=== PATIENT | female | born 1980 | race Caucasian/White ===

== ENCOUNTER → 2017-02-20 | Outpatient (CLI) | payer OTHER ==
[~2017-02-20] MED LIST: BENZ56AE TP; CODE-54 PO; DBC1O30 TOP; DCS100C PO; FAMO20TA5 PO; FRS325T PO; IBP600T1 PO; PREN1TAB71 PO
--- NOTE | 2017-02-20 10:42 | Diagnostic Imaging Report ---
3 views of the right knee. Indication right knee pain. Findings: No fracture, dislocation or radiopaque foreign body seen. There is small to moderate suprapatellar effusion suggested. Minimal osteophytes formation in the medial compartment seen. No significant joint space narrowing or other arthritic changes seen however. Impression: Minimal degenerative change. Small to moderate effusion. Dictated by: Dictated on workstation # [id number]
== END ==
LOC: RAD 10:22
PROVIDERS: ATTEND Nurse Practitioner Family
DX: M25.561 Pain in right knee (principal); M25.461 Effusion, right knee
CPT/HCPCS: 73562

== ENCOUNTER → 2019-01-11 | Outpatient (CLI) | payer OTHER ==
--- NOTE | 2019-01-11 14:25 | Diagnostic Imaging Report ---
INDICATION: anatomical assessment during normal . TECHNIQUE: Multiple real-time grayscale images were obtained over the gravid uterus. COMPARISON: None. FINDINGS: There is presence of a single viable intrauterine , currently in cephalic presentation. Normal amount of amniotic fluid. Placenta is anterior and without evidence for previa. Visualized anatomical structures including kidneys, bladder, stomach, intracranial structures, four-chamber heart, three-vessel cord, spine, and cord insertion site are unremarkable. Maternal adnexa is not visualized. Biometrical measurements are as follows: Biparietal 4.80 cm, age 20 weeks 4 days. Head circumference 18.40 cm, age 20 weeks 6 days. Abdominal circumference 15.60 cm, age 20 weeks 6 days. Femur length 3.74 cm, age 22 weeks 0 days. Sonographic estimate age: 21 weeks 1 days. Sonographic estimated date of delivery: 05/23/2019. Estimated Weight: 407 gm (+/- 60 gm). LMP percentile: 94%. heart rate: 140 beats per minute. number: 1 of 1. IMPRESSION: 1. Single viable intrauterine , currently in cephalic presentation. Sonographic estimated age at 21 weeks 1 day for an estimated date of delivery of May 23, 2019. No abnormalities demonstrated at this time. Dictated by: Dictated on workstation # [id number]
== END ==
LOC: RAD 11:50
PROVIDERS: ATTEND Obstetrics & Gynecology
DX: Z36.89 Encounter for other specified antenatal screening (principal); Z3A.21 21 weeks gestation of pregnancy
CPT/HCPCS: 76805

== ENCOUNTER 2019-05-23 19:03 | Inpatient (IN) | payer BC, OTHER ==
[~2019-05-23] VITALS: Ht 165.1 cm; Wt 112.0 kg
--- NOTE | 2019-05-23 19:00 | NUR ---
MÓNICA AGEE presented to unit via from ED, accompanied by s/o, with c/o INDUCTION. MÓNICA AGEE weighed, gowned, voided, and to bed. EFHM and TOCO applied, VS taken. MÓNICA AGEE oriented to bed controls, call light, TV, heat, and A/C controls.
[2019-05-23 19:15] VITALS: BP 136/69
[2019-05-23] MEDS ORDERED: MISOPROSTOL 100 MCG (CYTOTEC) TAB PO NR (19:15)
[2019-05-23] MEDS ORDERED: NS IV 500 ML 500 ML IV ONE (19:15)
[2019-05-23] MEDS ORDERED: D5 LR IV SOLUTION 1,000 ML IV ONE (19:27)
[2019-05-23] MEDS ORDERED: NS IV 500 ML 500 ML ONE (19:27)
[2019-05-23] MEDS: D5 LR IV SOLUTION 1,000 ML IV SCH (19:47)
[2019-05-23 19:58] LABS: BILIRUBIN,URINE NEGATIVE (NEGATIVE); COLOR,URINE YELLOW; GLUCOSE, URINE (UA) NEGATIVE (NEGATIVE); KETONES,URINE 1+ (NEGATIVE); LEUKOCYTE ESTERASE ,URINE 1+ (NEGATIVE); NITRITE,URINE NEGATIVE (NEGATIVE); PH,URINE 5 (5-9); PROTEIN,URINE 2+ (NEGATIVE); UROBILINOGEN,URINE NORMAL (NORMAL)
[2019-05-23 20:00] LABS: BASOPHILS % (AUTO) 0 % (0-10); EOSINOPHILS % (AUTO) 1 % (0-10); HEMATOCRIT 29 % (35-52); HEMOGLOBIN 9.3 G/DL (11.5-16.0); LYMPHOCYTES # (AUTO) 1.6 X 10^3 (1.0-4.0); LYMPHOCYTES % (AUTO) 21 % (12-44); MEAN CORPUSCULAR HEMOGLOBIN 25 PG (25-34); MEAN CORPUSCULAR HGB CONC 32 G/DL (32-36); MEAN CORPUSCULAR VOLUME 79 FL (80-99); MONOCYTES # (AUTO) 0.7 X 10^3 (0.0-1.0); MONOCYTES % (AUTO) 9 % (0-12); NEUTROPHILS # (AUTO) 5.3 X 10^3 (1.8-7.8); NEUTROPHILS % (AUTO) 69 % (42-75); PLATELET COUNT 394 10^3/uL (130-400); RED CELL DISTRIBUTION WIDTH 15.2 % (10.0-14.5); WHITE BLOOD COUNT 7.7 10^3/uL (4.3-11.0)
[2019-05-23 20:04] LABS: BACTERIA,URINE FEW /HPF; CLARITY,URINE SL CLOUDY; RBC,URINE RARE /HPF
[2019-05-23 20:25] VITALS: BP 134/67
[2019-05-23 20:55] VITALS: BP 129/73
[2019-05-23 21:25] VITALS: BP 139/61
[2019-05-23 22:50] VITALS: BP 126/78
[2019-05-23] MEDS ORDERED: MISOPROSTOL 100 MCG (CYTOTEC) TAB PO SCH (23:15)
[2019-05-23 23:50] VITALS: BP 128/64
[2019-05-24] VITALS (76 sets, daily range): BP systolic 99–150; BP diastolic 5–93
[2019-05-24] MEDS ORDERED: LIDOCAINE PF 2% 5 ML (XYLOCAINE) VIAL ONE (01:41)
[2019-05-24] MEDS ORDERED: fentaNYL INJECTION 100 MCG/2 ML AMP ONE (01:41)
[2019-05-24] MEDS ORDERED: BUPIVACAINE 0.25% 30 ML (SENSORCAINE) VIAL ONE ×2 (01:41→12:19)
[2019-05-24] MEDS ORDERED: LACTATED RINGERS 1,000 ML IV ONE ×2 (02:21)
[2019-05-24] MEDS ORDERED: NALOXONE 0.4 MG/ML 1 ML (NARCAN) VIAL IV PRN (02:30)
[2019-05-24] MEDS ORDERED: ONDANSETRON 4 MG/2 ML (SDV) Z0FRAN IV PRN (02:30)
[2019-05-24] MEDS: EPIDURAL (SUFENTA 0.6MCG/ML BUPIVA 0.125%) 100 ML BAG EPI PRN ×2 (02:30→11:05)
[2019-05-24] MEDS: D5 LR IV SOLUTION 1,000 ML IV SCH ×3 (03:02→22:01)
[2019-05-24] MEDS ORDERED: PHYTONADIONE (VIT. K) NEONATAL 1 MG/0.5 ML AMP ONE (04:28)
[2019-05-24] MEDS ORDERED: ERYTHROMYCIN OPHTH OINT 1 GM (SINGLE USE) TUBE ONE (04:28)
[2019-05-24] MEDS ORDERED: PETROLATUM JELLY(VASELINE) 49 GM JAR ONE (04:28)
[2019-05-24] MEDS ORDERED: OXYTOCIN/NORMAL SALINE 500 ML IV ONE (06:28)
[2019-05-24] MEDS ORDERED: OXYTOCIN/NORMAL SALINE 500 ML IV SCH (06:34)
--- NOTE | 2019-05-24 08:39 | History & Physical-OB ---
OB - Chief Complaint & HPI Date/Time Date of Admission: Date of Admission: May 23, 2019 at 7:03 pm Date seen by a Provider: May 24, 2019 Time Seen by a Provider: 08:00 Chief Complaint/History OB-Reason for Admission/Chief: Induction of Labor Hx : 4 Hx Para: 1 Expected Date of Delivery: May 30, 2019 Gestational Age in Weeks: 39 Gestational Age in Days: 1 Admission Nurse Assessment Rev: Yes History of Labs O pos antibody neg RI HBsAg NR HCsAg NR HIV NR RPR NR GC neg GBS neg Allergies and Home Medications Allergies Coded Allergies: No Known Drug Allergies (Unverified , 10/13/14) Home Medications Famotidine 20 Mg Tablet, 1 EACH PO BID PRN for HEARTBURN, (Reported) Patient Home Medication List Home Medication List Reviewed: Yes OB - History Hx of Present Care: Yes Ultrasounds: Normal mid trimester US Obstetrical Complications: Gestational Hypertension Medical Complications: None Obstetrical History Hx Termination: No Hx Multiple Gestation: No Hx Stillbirth: No Hx Complication: No Hx Induced Hypertens: Yes Hx Maternal Gestational Diabet: No Delivery History Hx Dystocia: No Hx Large For Gestational Age I: No Hx Small for Gestational Age I: No Hx Section: No Hx Vaginal Delivery Post C-Sec: No Hx Blood Disorders: No Adverse Rxn to Tranfusion: No Patient Past Medical History n/a Social History/Family History Recent Infectious Disease Expo: No Alcohol Use: Denies Use Recreational Drug Use: No Immunizations Hepatitis A: No Hepatitis B: No Date of Influenza Vaccine: May 29, 2014 OB - Admission Exam Physical Exam Vitals: Vital Signs 05/24/19 05/24/19 05/24/19 01:20 03:30 07:00 Temp 97.9 Pulse 61 Resp 18 B/P (MAP) 99/5 (36) Pulse Ox 95 O2 Delivery Room Air HEENT: NCAT Heart: Rhythm Normal Lungs: Clear Abdomen: Gravid Extremities: Normal Reflexes: Normal Cervical Dilatation: 3cm Effacement: 75% Station: -1 Membranes: Intact Heart Rate: 130's Accelerations: Accelerations Present Decelerations: No Decelerations Short Term Variability: Present Plywood Matcher Variability: Average (6-25) Contractions on Admission: 6-10 Minutes Apart Intensity: Mild Zambrano Scoring Tool (Modified) Dilation (cm): 3-4cm (2) Effacement (%): 51-79% (2) Descent/Station: -1,0 (2) Cervix Consistency: Soft (2) Cervix Position: Anterior (2) Add 1 point for: Each previous vaginal delivery (1) Zambrano Score: 11 Labs Laboratory Tests Test 05/23/19 19:45 Range/Units White Blood Count 7.7 4.3-11.0 10^3/uL Red Blood Count 3.68 L 4.35-5.85 10^6/uL Hemoglobin 9.3 L 11.5-16.0 G/DL Hematocrit 29 L 35-52 % Mean Corpuscular Volume 79 L 80-99 FL Mean Corpuscular Hemoglobin 25 25-34 PG Mean Corpuscular Hemoglobin Concent 32 32-36 G/DL Red Cell Distribution Width 15.2 H 10.0-14.5 % Platelet Count 394 130-400 10^3/uL Mean Platelet Volume 10.0 7.4-10.4 FL Neutrophils (%) (Auto) 69 42-75 % Lymphocytes (%) (Auto) 21 12-44 % Monocytes (%) (Auto) 9 0-12 % Eosinophils (%) (Auto) 1 0-10 % Basophils (%) (Auto) 0 0-10 % Neutrophils # (Auto) 5.3 1.8-7.8 X 10^3 Lymphocytes # (Auto) 1.6 1.0-4.0 X 10^3 Monocytes # (Auto) 0.7 0.0-1.0 X 10^3 Eosinophils # (Auto) 0.0 0.0-0.3 10^3/uL Basophils # (Auto) 0.0 0.0-0.1 10^3/uL Urine Color YELLOW Urine Clarity SL CLOUDY Urine pH 5 5-9 Urine Specific [place] 1.020 1.016-1.022 Urine Protein 2+ H NEGATIVE Urine Glucose (UA) NEGATIVE NEGATIVE Urine Ketones 1+ H NEGATIVE Urine Nitrite NEGATIVE NEGATIVE Urine Bilirubin NEGATIVE NEGATIVE Urine Urobilinogen NORMAL NORMAL MG/DL Urine Leukocyte Esterase 1+ H NEGATIVE Urine RBC (Auto) NEGATIVE NEGATIVE Urine RBC RARE /HPF Urine WBC 2-5 /HPF Urine Squamous Epithelial Cells 10-25 H /HPF Urine Crystals NONE /LPF Urine Bacteria FEW H /HPF Urine Casts NONE /LPF Urine Mucus MODERATE H /LPF Urine Culture Indicated YES OB - Assessment/Plan/Diagnosis Assessment Assessment: induction of labor Admission Dx 38 yo @ 39 weeks GHTN GBS neg AMA Admission Status: Inpatient Order (span 2 midnights) Reason for Inpatient Admission: Induction of labor at term Plan Induction Method: per Misoprostol Protocol RISHI SINGLETON DO May 24, 2019 8:39 am
[2019-05-24] MEDS ORDERED: LIDOCAINE/EPI 2% 1:200,00 (XYLOCAINE) 10 ML VIAL ONE (13:50)
[2019-05-24] MEDS ORDERED: WITCH HAZEL(TUCKS) 40 EA JAR TOP PRN (14:45)
[2019-05-24] MEDS ORDERED: DIBUCAINE (NUPERCAINAL) 1% OINT 30 GM TOP PRN (14:45)
[2019-05-24] MEDS ORDERED: MEASLES,MUMPS,RUBELLA 1 EA INJ SQ ONE (14:45)
[2019-05-24] MEDS ORDERED: HYDROcodone/APAP 5 MG/325 MG (LORTAB) TAB PO PRN (14:45)
[2019-05-24] MEDS ORDERED: BENZOCAINE/MENTHOL (DERMOPLAST) 56 ML CAN TP PRN (14:45)
[2019-05-24] MEDS ORDERED: TETANUS,DIPTH,PERTUSS P/F (BOOSTRIX) 0.5 ML VIAL IM ONE (14:45)
--- NOTE | 2019-05-24 14:46 | OB Labor & Delivery Record ---
L&D History Date of Service Date of Service: May 24, 2019 History Expected Date of Delivery: May 30, 2019 Gestational Age in Weeks: 39 Hx : 4 Hx Para: 1 Complications Events: Routine care Operative Indications (Cesarea: N/A-Vaginal Delivery Intrapartal Events: None L&D Stage1 Stage One Onset of Labor - Date: May 24, 2019 Monitors and Tracing Monitor Mode: External Heart Rate: 130 Station: -1 Snf Variability: Average (6-10) Short Term Variability: Present Presentation: Vertex Vital Signs VS - Last 72 Hours, by Label 05/23/19 05/23/19 05/23/19 05/23/19 19:15 20:25 20:55 21:25 Temp 97.0 Pulse 80 71 72 75 Resp 18 18 18 18 B/P (MAP) 136/69 (91) 134/67 (89) 129/73 (91) 139/61 (87) O2 Delivery Room Air Room Air Room Air Room Air 05/23/19 05/23/19 05/24/19 05/24/19 22:50 23:50 00:20 00:50 Temp 97.2 Pulse 70 71 65 63 Resp 18 18 18 18 B/P (MAP) 126/78 (94) 128/64 (85) 129/74 (92) 128/69 (88) O2 Delivery Room Air Room Air Room Air Room Air 05/24/19 05/24/19 05/24/19 05/24/19 01:20 01:55 02:00 02:05 Temp 97.9 Pulse 65 75 66 73 Resp 18 18 18 18 B/P (MAP) 145/70 (95) 139/62 (87) 132/61 (84) 132/64 (86) O2 Delivery Room Air Room Air Room Air Room Air 05/24/19 05/24/19 05/24/19 05/24/19 02:10 02:15 02:20 02:30 Pulse 73 78 75 67 Resp 18 18 18 18 B/P (MAP) 134/67 (89) 135/63 (87) 126/79 (95) 121/64 (83) Pulse Ox 98 98 98 O2 Delivery Room Air Room Air Room Air Room Air 05/24/19 05/24/19 05/24/19 05/24/19 02:40 02:45 02:50 02:55 Pulse 68 69 68 67 Resp 18 18 18 18 B/P (MAP) 129/62 (84) 125/59 (81) 128/61 (83) 126/60 (82) Pulse Ox 96 97 97 97 O2 Delivery Room Air Room Air Room Air Room Air 05/24/19 05/24/19 05/24/19 05/24/19 03:00 03:05 03:10 03:15 Pulse 67 69 67 65 Resp 18 18 18 18 B/P (MAP) 123/62 (82) 128/61 (83) 120/61 (80) 124/59 (80) Pulse Ox 97 97 97 95 O2 Delivery Room Air Room Air Room Air Room Air 05/24/19 05/24/19 05/24/19 05/24/19 03:20 03:25 03:30 03:45 Pulse 64 66 64 64 Resp 18 18 18 18 B/P (MAP) 117/59 (78) 120/66 (84) 125/69 (87) 127/66 (86) Pulse Ox 96 95 95 O2 Delivery Room Air Room Air Room Air Room Air 05/24/19 05/24/19 05/24/19 05/24/19 04:00 04:15 04:30 04:45 Pulse 60 60 64 63 Resp 18 18 18 18 B/P (MAP) 121/61 (81) 122/60 (80) 127/71 (89) 121/67 (85) O2 Delivery Room Air Room Air Room Air Room Air 05/24/19 05/24/19 05/24/19 05/24/19 05:00 05:15 05:30 05:45 Pulse 63 58 64 60 Resp 18 18 18 18 B/P (MAP) 121/60 (80) 120/69 (86) 127/63 (84) 126/65 (85) O2 Delivery Room Air Room Air Room Air Room Air 05/24/19 05/24/19 05/24/19 05/24/19 06:00 06:20 06:30 06:45 Pulse 68 70 64 65 Resp 18 18 18 18 B/P (MAP) 127/64 (85) 129/59 (82) 125/60 (81) 128/56 (80) O2 Delivery Room Air Room Air Room Air Room Air 05/24/19 05/24/19 05/24/19 05/24/19 07:00 07:15 07:30 07:45 Temp 97.7 Pulse 61 58 61 70 Resp 18 18 18 18 B/P (MAP) 99/5 (36) 99/55 (70) 117/56 (76) 121/58 (79) O2 Delivery Room Air Room Air Room Air Room Air 05/24/19 05/24/19 05/24/19 05/24/19 08:00 08:15 08:30 08:45 Pulse 72 79 65 71 Resp 18 18 18 18 B/P (MAP) 118/61 (80) 115/64 (81) 121/67 (85) 125/58 (80) O2 Delivery Room Air Room Air Room Air Room Air 05/24/19 05/24/19 05/24/19 05/24/19 09:00 09:15 09:30 09:45 Temp 97.8 Pulse 75 66 63 62 Resp 18 18 18 18 B/P (MAP) 128/70 (89) 127/60 (82) 131/67 (88) 133/70 (91) O2 Delivery Room Air Room Air Room Air Room Air 05/24/19 05/24/19 05/24/19 05/24/19 10:00 10:15 10:30 10:45 Temp 98.4 Pulse 62 83 68 63 Resp 18 18 18 18 B/P (MAP) 128/74 (92) 125/81 (96) 124/74 (91) 127/73 (91) O2 Delivery Room Air Room Air Room Air Room Air 05/24/19 05/24/19 05/24/19 05/24/19 11:00 11:15 11:30 11:45 Temp 98.1 Pulse 72 74 67 72 Resp 18 18 18 18 B/P (MAP) 128/79 (95) 139/78 (98) 131/64 (86) 135/66 (89) O2 Delivery Room Air Room Air Room Air Room Air Rupture of Membranes Spontaneous Ruture of Membrane: No Amniotic Membrane Rupture Time: 08 Amniotic Membrane Fluid Desc.: Clear Vaginal Bleeding Description: Normal Show Induction/Anesthesia Epidural Cath Placement - Time: 212 Progress/Notes Patient admitted induction last night, PO cytotec given. This morning pitocin augmentation started with AM with increased to max dose of 8mu. AROM performed, and epidural obtained. Progressed to complete and +2 station L&D Stage2 Stage Two Stage II Date: May 24, 2019 Monitors and Tracing Monitor Mode: External Heart Rate: 130 Monitor Accelerations: Uniform Monitor Decelerations: Variable Multi Share Program Coordinator Variability: Average (6-10) Short Term Variability: Present Position: Right Occiput Anterior Presentation: Vertex Signs of Distress by FHT Signs of Distress prolonged heart rate decel into the 70s noted for 2 mins at which point due to distress and +2-3 station. Low vaccum extraction, 550 mmHg applied to kiwi device at the flextion point and head delivered over midline episiotomy Cord Descript/Complications Cord Vessel Description: 3 Vessels Complications nuchal cord reduced x 1 Delivery Type Infant Delivery Method: Low Vacuum Extraction Anterior Shoulder: Right Episiotomy/Perineal Laceration Laceraction(s)/Extensions: Yes Episiotomy Description: Midline Condition of Delivery 1 minute Comment: 8 5 minute Comment: 9 Notes live male infant weight 8lbs 6 oz Condition of Condition of Infant: Living Exam: No Observed Abnormalities Resuscitation Resuscitation: N/A - Spontaneous Resp L&D Stage3 Stage Three Stage III Date: May 24, 2019 Pictocin Pitocin ml/hr: 8 Pitocin Administration Comment: 30 mu wide open at delivery of placenta Placenta Delivery Placenta Delivery: Spontaneous Delivery Summary Summary Estimated blood loss (mL): 300 Attending at delivery: Rishi Singleton DO Condition of Delivery Examined: Cervix Examined, Uterus Explored Post Hemorrhage: No Condition of Mother stable Condition of (s) stable RISHI SINGLETON DO May 24, 2019 14:46
[2019-05-24] MEDS: OXYTOCIN/NORMAL SALINE 500 ML IV SCH ×2 (14:55→16:34)
[2019-05-24] MEDS: IBUPROFEN 600 MG (MOTRIN) TAB PO SCH ×2 (16:57→23:24)
--- NOTE | 2019-05-24 18:00 | NUR ---
FF1/U, light rubra lochia noted. Pericare performed fresh vpad and underwear applied. Pt assisted to standing position at side of bed, pt ambulates to bathroom without difficulty. +void. FFU/1 after void. Pericare performed. Fresh gown applied. Pt assisted to wheelchair. Wheeled to PP room 310 accompanied by RN, S.o., and . Pt to bed. Pt and s.o. oriented to room and call light. packet explained. Dermoplast and tucks pads provided. Pt denies questions or needs at this time.
[2019-05-24] MEDS: DOCUSATE SODIUM 100 MG (COLACE) CAP PO SCH (21:59)
[2019-05-24] MEDS ORDERED: CATHETER FLUSH 10 ML SYR IV SCH (22:00)
[2019-05-25 05:19] VITALS: BP 132/77
[2019-05-25] MEDS: IBUPROFEN 600 MG (MOTRIN) TAB PO SCH ×3 (05:32→16:56)
[2019-05-25 05:39] LABS: BASOPHILS % (AUTO) 0 % (0-10); EOSINOPHILS # (AUTO) 0.1 10^3/uL (0.0-0.3); EOSINOPHILS % (AUTO) 1 % (0-10); HEMATOCRIT 23 % (35-52); HEMOGLOBIN 7.4 G/DL (11.5-16.0); LYMPHOCYTES # (AUTO) 1.9 X 10^3 (1.0-4.0); LYMPHOCYTES % (AUTO) 19 % (12-44); MEAN CORPUSCULAR HEMOGLOBIN 25 PG (25-34); MEAN CORPUSCULAR HGB CONC 32 G/DL (32-36); MEAN CORPUSCULAR VOLUME 80 FL (80-99); MEAN PLATELET VOLUME 9.7 FL (7.4-10.4); MONOCYTES # (AUTO) 0.7 X 10^3 (0.0-1.0); MONOCYTES % (AUTO) 8 % (0-12); NEUTROPHILS # (AUTO) 6.9 X 10^3 (1.8-7.8); NEUTROPHILS % (AUTO) 72 % (42-75); PLATELET COUNT 262 10^3/uL (130-400); RED CELL DISTRIBUTION WIDTH 14.9 % (10.0-14.5); WHITE BLOOD COUNT 9.5 10^3/uL (4.3-11.0)
[2019-05-25] MEDS ORDERED: PRENATAL VITAMIN 1 EA TAB PO SCH (07:00)
[2019-05-25] MEDS ORDERED: FERROUS SULF 325 MG (IRON) TAB PO SCH (07:00)
--- NOTE | 2019-05-25 07:49 | Anesthesia-Regional Post-Op ---
Regional Patient Condition Mental Status: Alert, Oriented x3 Circulation: Same as Pre-Op Headache: Absent Sensation: Full Recovery Motor Block: Absent Post Op Complications Complications None Follow Up Care/Instructions Patient Instructions None needed. Anesthesia/Patient Condition Patient is doing well, no complaints, stable vital signs, no apparent adverse anesthesia problems. No complications reported per nursing. ADOLPH SPENCER CRNA May 25, 2019 07:49
[2019-05-25 08:00] VITALS: BP 121/75
--- NOTE | 2019-05-25 08:18 | Postpartum Progress Note ---
Note Note Day # 1 Subjective: Patient is without complaints. Ambulating, voiding. Tolerating a regular diet without nausea or vomiting. Normal lochia. Pain is well controlled with oral pain medications. Objective: Physical Exam: General - Alert and oriented, no apparent distress Abdomen - Soft, appropriately tender to palpation, non-distended, fundus firm at umbilicus Extremities - no edema, negative William's bilaterally Assessment: PPD 1 NVD Acute blood loss anemia Plan: Routine care. Encourage breast feeding. Encourage ambulation. Ferrous sulfate supplementation. Plan for discharge today Vitals - Labs Vital Signs - I&O Vital Signs Date Time Temp Pulse Resp B/P (MAP) Pulse Ox O2 Delivery O2 Flow Rate FiO2 05/25/19 05:19 97.8 71 18 132/77 (95) 98 Room Air 05/24/19 23:24 98.0 80 18 128/64 (85) 98 Room Air 05/24/19 20:00 97.6 76 18 133/71 (91) Room Air 05/24/19 16:46 76 18 148/67 (94) Room Air 05/24/19 16:30 72 18 130/60 (83) Room Air 05/24/19 16:16 98.4 78 18 137/60 (85) Room Air 05/24/19 15:46 78 18 121/62 (81) Room Air 05/24/19 15:30 77 18 119/58 (78) Room Air 05/24/19 15:16 86 18 138/60 (86) Room Air 05/24/19 15:01 81 18 141/81 (101) Room Air 05/24/19 14:45 79 18 131/62 (85) Room Air 05/24/19 14:31 90 18 129/59 (82) Room Air 05/24/19 14:31 107 18 119/69 (86) Room Air 05/24/19 14:16 90 18 129/59 (82) Room Air 05/24/19 13:45 97.7 73 18 150/80 (103) Room Air 05/24/19 13:35 66 18 147/75 (99) Room Air 05/24/19 13:15 80 18 137/93 (108) Room Air 05/24/19 13:05 75 18 127/65 (85) Room Air 05/24/19 12:45 74 18 118/77 (91) Room Air 05/24/19 12:40 73 18 142/75 (97) Room Air 05/24/19 12:35 73 18 128/69 (88) Room Air 05/24/19 12:30 75 18 126/71 (89) Room Air 05/24/19 12:15 70 18 121/66 (84) Room Air 05/24/19 12:00 68 18 122/66 (84) Room Air 05/24/19 11:45 98.1 72 18 135/66 (89) Room Air 05/24/19 11:30 67 18 131/64 (86) Room Air 05/24/19 11:15 74 18 139/78 (98) Room Air 05/24/19 11:00 72 18 128/79 (95) Room Air 05/24/19 10:45 63 18 127/73 (91) Room Air 05/24/19 10:30 68 18 124/74 (91) Room Air 05/24/19 10:15 98.4 83 18 125/81 (96) Room Air 05/24/19 10:00 62 18 128/74 (92) Room Air 05/24/19 09:45 62 18 133/70 (91) Room Air 05/24/19 09:30 63 18 131/67 (88) Room Air 05/24/19 09:15 66 18 127/60 (82) Room Air 05/24/19 09:00 97.8 75 18 128/70 (89) Room Air 05/24/19 08:45 71 18 125/58 (80) Room Air 05/24/19 08:30 65 18 121/67 (85) Room Air I & O 05/25/19 07:00 Intake Total 2500 ml Balance 2500 ml Labs Laboratory Tests 05/25/19 05:16: White Blood Count 9.5, Red Blood Count 2.92L, Hemoglobin 7.4#L, Hematocrit 23L, Mean Corpuscular Volume 80, Mean Corpuscular Hemoglobin 25, Mean Corpuscular Hemoglobin Concent 32, Red Cell Distribution Width 14.9H, Platelet Count 262, Mean Platelet Volume 9.7, Neutrophils (%) (Auto) 72, Lymphocytes (%) (Auto) 19, Monocytes (%) (Auto) 8, Eosinophils (%) (Auto) 1, Basophils (%) (Auto) 0, Neutrophils # (Auto) 6.9, Lymphocytes # (Auto) 1.9, Monocytes # (Auto) 0.7, Eosinophils # (Auto) 0.1, Basophils # (Auto) 0.0 Microbiology 05/23/19 Urine Culture - Final, Complete NO GROWTH RISHI SINGLETON DO May 25, 2019 08:18
--- NOTE | 2019-05-25 08:28 | Discharge Inst-Women's Service ---
Discharge Inst-Women's Serv Depart Medication/Instructions New, Converted or Re-Newed RX: RX on Chart Final Diagnosis PPD 1 VAVD Problems Reviewed?: Yes Consults/Follow Up Additional Follow Up: Yes Orders/Referrals Dr. Singleton in 6 weeks Activity Activity: Activity as Tolerated Driving Instructions: No Driving for 1 Week NO SMOKING: NO SMOKING Nothing Inside Vagina: No Douching, No [place], No Tampons Diet Discharge Diet: No Restrictions Symptoms to Report to : Bleeding Excessive, Pain Increased, Fever Over 101 Degrees F, Vaginal Bleeding Increase, Questions/Concerns For Any Problems or Questions: Contact Your Physician RISHI SINGLETON DO May 25, 2019 08:28
[2019-05-25] MEDS ORDERED: DIBU30OI TOP (08:34)
[2019-05-25] MEDS ORDERED: FERR325T18 PO (08:34)
[2019-05-25] MEDS ORDERED: ACHD5005 PO (08:34)
[2019-05-25] MEDS ORDERED: DOCU100C37 PO (08:34)
[2019-05-25] MEDS ORDERED: Benzocaine/Menthol TP (08:34)
[2019-05-25] MEDS ORDERED: IBUP-844 PO (08:34)
--- NOTE | 2019-05-25 08:34 | NUR ---
here. dismissal orders received.
--- NOTE | 2019-05-25 08:45 | NUR ---
pt talking on phone. family members @ side. no c/o's voiced.
--- NOTE | 2019-05-25 09:18 | NUR ---
report given to DICK Garcia.
[2019-05-25] MEDS: DOCUSATE SODIUM 100 MG (COLACE) CAP PO SCH (09:57)
--- NOTE | 2019-05-25 10:02 | NUR ---
PT IN BED, INFANT AT THE BEDSIDE. MEDS GIVEN PO; SEE EMAR. INITIAL SHIFT ASSESSMENT COMPLETED; SEE INTERVENTION FOR FURTHER. FRESH ICE WATER PROVIDED. WHITE BOARD UPDATED. NO NEEDS VOICED.
[2019-05-25 12:00] VITALS: BP 137/77
--- NOTE | 2019-05-25 15:00 | NUR ---
DISCHARGE PAPERS PROVIDED AND REVIEWED WITH PT PER THIS RN. PT VERBALIZES UNDERSTANDING AND DENIES QUESTIONS AT THIS TIME. S/O AND FAMILY AT THE BEDSIDE. PAPER SIGNED.
[2019-05-25 15:45] VITALS: BP 131/75
[2019-05-25] MEDS ORDERED: TETANUS,DIPTH,PERTUSS P/F (BOOSTRIX) 0.5 ML VIAL IM ONE (16:44)
--- NOTE | 2019-05-25 16:58 | NUR ---
TDAP GIVEN IM IN LEFT DELTOID. SITE CLEAR. ROUTINE MOTRIN GIVEN.
[2019-05-25 17:15] VITALS: BP 131/75
--- NOTE | 2019-05-25 17:15 | NUR ---
PT DISMISSED FROM WS IN STABLE CONDITION TO ROOMING IN PARENT R/T INFANT HAVING TO STAY.
== END 2019-05-25 17:15 | disposition home or self-care (01) | DRG 806 ==
LOC: LDRP 19:03
PROVIDERS: ADMIT Obstetrics & Gynecology; ATTEND Obstetrics & Gynecology
PROC: 3E0DXGC Introduction of Other Therapeutic Substance into Mouth and Pharynx, External Approach (ICD-10-PCS; 2019-05-23)
PROC: 10D07Z6 Extraction of Products of Conception, Vacuum, Via Natural or Artificial Opening (ICD-10-PCS; principal; 2019-05-24)
PROC: 0W8NXZZ Division of Female Perineum, External Approach (ICD-10-PCS; 2019-05-24)
DX: O13.4 Gestational [pregnancy-induced] hypertension without significant proteinuria, complicating childbirth (principal); O76 Abnormality in fetal heart rate and rhythm complicating labor and delivery; O69.81X0 Labor and delivery complicated by cord around neck, without compression, not applicable or unspecified; O90.81 Anemia of the puerperium; D62 Acute posthemorrhagic anemia; Z37.0 Single live birth; Z3A.39 39 weeks gestation of pregnancy; Z23 Encounter for immunization
CPT/HCPCS: 36415; 81000; 85025; 86850; 86900; 86901; 87088; 90715